=== PATIENT | male | born 1985 | race Caucasian/White ===

== ENCOUNTER 2021-08-11 16:32 | Emergency (ER) | payer OTHER, MEDICAID, SELFPAY ==
[2021-08-11 16:48] VITALS: BP 103/59; PULSE 69; RESP 18; TEMP 36.6; O2SAT 97; BMI 20.3
[2021-08-11 17:13] LABS: COVID19 -Nasal RAPID Negative (Negative)
--- NOTE | 2021-08-11 18:54 | ED_ITS ---
HPI - Recheck/Abnormal Lab/Rx <RENAY Jordan - Last Filed: 08/11/21 19:00> General Chief Complaint: Recheck/Abnormal Lab/Rx Stated Complaint: Exposed To Covid, Fatigue and Muscle Aches Time Seen by Provider: 08/11/21 17:08 Source: patient Mode of arrival: Ambulatory Limitations: no limitations History of Present Illness HPI narrative: 36-year-old male presents the ED for possible exposure to COVID and requesting COVID test. Patient reports that he was golfing a week ago with somebody who tested positive on Saturday. He denies any cough, shortness of breath, chest pain, loss of sense of smell or taste, fever, nausea or vomiting. 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 He does not wish to be vaccinated for COVID today. Related Data Allergies Allergy/AdvReac Type Severity Reaction Status Date / Time No Known Drug Allergies Allergy Verified 08/11/21 16:47 Review of Systems <RENAY Jordan - Last Filed: 08/11/21 19:00> Review of Systems Narrative: General: denies fever, chills Head/Neck: denies headache, neck pain Eyes: denies visual changes, eye pain Cardio: denies chest pain, palpitations Respiratory: denies shortness of breath, cough GI: denies abdominal pain, nausea, vomiting, or diarrhea : denies dysuria, hematuria MSK: denies joint pain, muscle weakness Skin: denies rash, itching Neuro: denies numbness, tingling Patient History <RENAY Jordan - Last Filed: 08/11/21 19:00> Social History Smoking Status: Current every day smoker Smoking Status: Current every day smoker Substance Use Type: marijuana Exam <RENAY Jordan - Last Filed: 08/11/21 19:00> Narrative Exam Narrative: Independently reviewed vitals signs and nursing notes. General: Awake, alert, nontoxic, no cardiorespiratory distress Head/Neck: Atraumatic, neck full range of motion Eyes: EOMI, conjunctiva normal Nose: nares patent, no rhinorrhea Mouth/Throat: moist mucus membranes, posterior pharynx normal, no oral lesions Cardio: Regular rate and rhythm, no peripheral edema Respiratory: respirations unlabored without wheezing, stridor, or rales. No retractions. GI: Abdomen soft, nontender MSK: Moves all extremities, neurovascularly intact Skin: Normal capillary refill, no rash Neuro: Normal speech and cognition, normal gait Initial Vital Signs Initial Vital Signs: Vital Signs Temperature 97.9 F 08/11/21 16:48 Pulse Rate 69 08/11/21 16:48 Respiratory Rate 18 08/11/21 16:48 Blood Pressure 103/59 L 08/11/21 16:48 Pulse Oximetry 97 08/11/21 16:48 <Anant Boswell DO - Last Filed: 08/12/21 08:02> Initial Vital Signs Initial Vital Signs: Vital Signs Temperature 97.9 F 08/11/21 16:48 Pulse Rate 69 08/11/21 16:48 Respiratory Rate 18 08/11/21 16:48 Blood Pressure 103/59 L 08/11/21 16:48 Pulse Oximetry 97 08/11/21 16:48 Course <RENAY Jordan - Last Filed: 08/11/21 19:00> Orders Ordered: ED Orders 08/11/21 16:51 COVID19 -Nasal swab/Pre-Proc Stat Vital Signs Vital signs: Vital Signs - 8 hr 08/11/21 16:48 Temperature 97.9 F Pulse Rate 69 Respiratory Rate 18 Blood Pressure 103/59 L Pulse Oximetry 97 <DO Carlitos Cornell Last Filed: 08/12/21 08:02> Orders Ordered: ED Orders 08/11/21 16:51 COVID19 -Nasal swab/Pre-Proc Stat Vital Signs Vital signs: Vital Signs - 8 hr 08/11/21 16:48 Temperature 97.9 F Pulse Rate 69 Respiratory Rate 18 Blood Pressure 103/59 L Pulse Oximetry 97 MDM - Recheck/Abnormal Lab/Rx <RENAY Jordan - Last Filed: 08/11/21 19:00> Lab Data Labs: Lab Results 08/11/21 Range/Units 16:51 SARS-CoV-2 (PCR) Negative (Negative) MDM Narrative Medical decision making narrative: 36-year-old male presents to the ED with concern for COVID exposure requesting COVID test. His COVID test was negative today. Patient understands to monitor for signs and symptoms of COVID, and quarantine as necessary, and was educated on vaccination. He declined wanting a [employer] vaccine today but appreciated the offer. He understands to return to the emergency department for any new or worsening symptoms. Patient is appropriate and amenable to discharge home. Vital signs are stable on repeat examination is unremarkable. Patient has been informed of results. Patient has been given strict return to ER precautions for any new or worsening symptoms. Patient understands to follow up closely with outpatient providers as instructed. Patient understands plan and agrees to discharge home. All questions and concerns answered at this time. <Anant Boswell DO - Last Filed: 08/12/21 08:02> Lab Data Labs: Lab Results 08/11/21 Range/Units 16:51 SARS-CoV-2 (PCR) Negative (Negative) Discharge Plan Departure Patient Disposition: Home Clinical Impression: Encounter for screening for COVID-19 Instructions: About the COVID-19 Vaccine Activity Restrictions/Additional Instructions: Congratulations, your COVID test today was negative. Please return for any new or worsening symptoms including fever, cough, shortness of breath, difficulty breathing, chest pain, nausea or vomiting, or any other concerning symptoms. *What to do: *Please continue to take your regular medications as directed. [ ] New medication prescriptions sent to your pharmacy: [ ] [ ] New medication written as a paper prescription [x ] No new medications given *Please follow up with your primary care provider in 2-3 days, call for an appointment. Let them know you were seen in the Emergency Department and that we ask that you be seen in follow up. We will electronically transmit a record of today's note if your PCP is in our system *If you do not have a primary care provider please contact the [facility] Resource line at [phone]. They will ask some questions about your medical history and help get you set up with a doctor in the community. *Return to Emergency Department if you should have any new, worsening or concerning symptoms, such as [fever greater than 101F, chills, worsening pain, persistent vomiting or other bothersome symptoms] <Anant Boswell DO - Last Filed: 08/12/21 08:02> [facility] Attestation: Dr Boswell Co-Sign Statement: I was available for consultation during this patient's emergency department visit. This chart is signed by myself for administrative purposes only. I did not have direct contact with this patient during this visit. They were seen independently by the APC.
== END 2021-08-11 18:01 | disposition home or self-care (01) ==
PROVIDERS: Emergency Medicine; Emergency Provider Nurse Practitioner Critical Care Medicine
DX: R53.83 Other fatigue (principal)
CPT/HCPCS: 87635; 99281; 99282; C9803

== ENCOUNTER 2023-03-11 11:47 | Emergency (ER) | payer OTHER, MEDICAID, SELFPAY ==
[2023-03-11 11:55] VITALS: BP 121/57; PULSE 54; RESP 17; TEMP 37; O2SAT 100; BMI 19.0
[2023-03-11] MEDS: FLUORESCEIN 1 MG STRIP EYE-RIGHT (12:14)
[2023-03-11] MEDS: PROPARACAINE 0.5% OPHTH SOL 1 DROPS EYE-RIGHT (12:14)
[2023-03-11] MEDS: TET,DIPH,PERTUSS(ACELL),VAC/PF 0.5 ML SYRINGE IM (12:27)
--- NOTE | 2023-03-11 12:30 | ED_ITS ---
HPI - Eye Problem <Stewart Kirkland PA-C - Last Filed: 03/11/23 12:37> General Chief complaint: Eye Problems Stated complaint: Cat scratch Left eye Time Seen by Provider: 03/11/23 11:51 Source: patient Mode of arrival: Ambulatory History of Present Illness HPI Narrative: 37-year-old male with no reported past medical history presents to the ED with right eyelid redness and swelling for 2 days. Patient states that he was scratched by his cat on his right eyelid and left forehead, following which he is had swelling of the right eyelid, redness, pain. Patient denies any changes in vision. Patient denies any pain with extraocular movements. Patient denies fevers, chills, nausea, vomiting. Last tetanus unknown. Related Data Previous Rx's Medication Instructions Recorded cefdinir 300 mg capsule 300 mg PO BID 7 days #14 caps 03/11/23 sulfamethoxazole 800 1 tab PO BID 7 days #14 tabs 03/11/23 mg-trimethoprim 160 mg tablet (Bactrim DS) Allergies Allergy/AdvReac Type Severity Reaction Status Date / Time No Known Drug Allergies Allergy Verified 08/11/21 16:47 Review of Systems <Stewart Kirkland PA-C - Last Filed: 03/11/23 12:37> Review of Systems ROS Unobtainable: All systems reviewed & are unremarkable except as noted in HPI and below Constitutional Constitutional: Denies chills, Denies fatigue, Denies fever(s), Denies frequent falls, Denies lethargy and Denies weakness Eyes Eyes: Denies change in vision, Denies eye discharge, Denies irritation and Denies loss of vision Comments: Right eyelid red and swollen and painful. ENT Ears, Nose, Mouth, and Throat: Denies change in voice, Denies dizziness, Denies neck pain, Denies sore throat and Denies throat swelling Cardiovascular Cardiovascular: Denies chest pain, Denies irregular heart rhythm, Denies lightheadedness, Denies palpitations, Denies dyspnea, Denies dyspnea on exertion and Denies orthopnea Respiratory Respiratory: Denies cough, Denies dyspnea, Denies dyspnea on exertion and Denies wheezing Gastrointestinal Gastrointestinal: Denies abdominal pain, Denies change in bowel habits, Denies diarrhea, Denies nausea and Denies vomiting Genitourinary Genitourinary: Denies hematuria, Denies flank pain, Denies urinary incontinence and Denies urinary urgency Musculoskeletal Musculoskeletal: Denies back pain, Denies muscle weakness, Denies neck pain, Denies numbness and Denies tingling Integumentary/Breasts Skin/Breast: Denies pruritus, Denies erythema, Denies rash and Denies wounds Comments: Left forehead scratch is red and swollen Neurologic Neurologic: Denies behavioral changes, Denies confusion, Denies dizziness, Denies frequent falls, Denies loss of vision, Denies numbness, Denies tingling and Denies weakness Psychiatric Psychiatric: Denies anxiety, Denies behavioral changes, Denies confusion, Denies depression, Denies homicidal ideation and Denies suicidal ideation Endocrine Endocrine: Denies fatigue, Denies flushing and Denies palpitations Hematologic/Lymphatic Hematologic/Lymphatic: Denies easy bruising Allergic/Immunologic Allergic/Immunologic: Denies urticaria, Denies throat swelling and Denies wheezing Patient History <Stewart Kirkland PA-C - Last Filed: 03/11/23 12:37> Social History Smoking Status: Current every day smoker Smoking Status: Current every day smoker Substance Use Type: marijuana Exam <Stewart Kirkland PA-C - Last Filed: 03/11/23 12:37> Narrative Exam Narrative: Const General:?cooperative, healthy appearing and comfortable [facility] Head:?normal to inspection Ears:?hearing grossly normal bilaterally Nose:?external nose normal Face and sinus:?normal facial exam and sinuses nontender Mouth:?oral mucosae normal Throat:?posterior oropharynx normal Eyes General:? Right upper eyelid appears erythematous, swollen, painful to touch. There is no pain with extraocular movements. No corneal injection or watering eyes. No corneal abrasions or ulcers visualized on fluorescein exam. Visual acuity is intact. Left upper forehead has a scratch that also appears somewhat erythematous and swollen. No discharge noted. Neck Neck:?normal visual inspection and no lymphadenopathy noted Resp Effort & Inspection:?normal respiratory effort Auscultation:?clear to auscultation bilaterally Cardio Rate:?regular rate Rhythm:?regular rhythm Neuro General:?patient alert, patient awake and patient oriented x3 Initial Vital Signs Initial Vital Signs: Vital Signs Temperature 98.6 F 03/11/23 11:55 Pulse Rate 54 L 03/11/23 11:55 Respiratory Rate 17 03/11/23 11:55 Blood Pressure 121/57 L 03/11/23 11:55 Pulse Oximetry 100 03/11/23 11:55 Oxygen Delivery Method Room Air 03/11/23 11:55 <Girish Mosquera DO - Last Filed: 03/11/23 16:49> Initial Vital Signs Initial Vital Signs: Vital Signs Temperature 98.6 F 03/11/23 11:55 Pulse Rate 54 L 03/11/23 11:55 Respiratory Rate 17 03/11/23 11:55 Blood Pressure 121/57 L 03/11/23 11:55 Pulse Oximetry 100 03/11/23 11:55 Oxygen Delivery Method Room Air 03/11/23 11:55 Course <Stewart Kirkland PA-C - Last Filed: 03/11/23 12:37> Orders Ordered: Discontinued Medications Diphtheria/Tetanus/Acell Pertussis (Diph,Pertuss(Acell),Tet Vac/Pf 0.5 Ml Syringe) 0.5 ml IM .ONCE ONE Stop: 03/11/23 12:11 Last Admin: 03/11/23 12:15 Dose: Not Given Documented By: GAVINO Diphtheria/Tetanus/Acell Pertussis (Tet,Diph,Pertuss(Acell),Vac/Pf 0.5 Ml Syringe) 0.5 ml IM .ONCE ONE Stop: 03/11/23 12:16 Last Admin: 03/11/23 12:27 Dose: 0.5 ml Documented By: RB Fluorescein Sodium (Fluorescein 1 Mg Strip) 1 mg EYE-RIGHT NOW ONE Stop: 03/11/23 12:12 Last Admin: 03/11/23 12:14 Dose: 1 mg Documented By: GAVINO Proparacaine HCl (Proparacaine 0.5% Ophth [place]) 1 drops EYE-RIGHT PRN PRN PRN Reason: Pain, Moderate (4-6) Last Admin: 03/11/23 12:14 Dose: 1 drops Documented By: GAVINO Vital Signs Vital signs: Vital Signs - 8 hr 03/11/23 11:55 Temperature 98.6 F Pulse Rate 54 L Respiratory Rate 17 Blood Pressure 121/57 L Pulse Oximetry 100 Oxygen Delivery Method Room Air <Girish Mosquera DO - Last Filed: 03/11/23 16:49> Orders Ordered: Discontinued Medications Diphtheria/Tetanus/Acell Pertussis (Diph,Pertuss(Acell),Tet Vac/Pf 0.5 Ml Syringe) 0.5 ml IM .ONCE ONE Stop: 03/11/23 12:11 Last Admin: 03/11/23 12:15 Dose: Not Given Documented By: GAVINO Diphtheria/Tetanus/Acell Pertussis (Tet,Diph,Pertuss(Acell),Vac/Pf 0.5 Ml Syringe) 0.5 ml IM .ONCE ONE Stop: 03/11/23 12:16 Last Admin: 03/11/23 12:27 Dose: 0.5 ml Documented By: GIBRAN Fluorescein Sodium (Fluorescein 1 Mg Strip) 1 mg EYE-RIGHT NOW ONE Stop: 03/11/23 12:12 Last Admin: 03/11/23 12:14 Dose: 1 mg Documented By: GAVINO Proparacaine HCl (Proparacaine 0.5% Ophth [place]) 1 drops EYE-RIGHT PRN PRN PRN Reason: Pain, Moderate (4-6) Last Admin: 03/11/23 12:14 Dose: 1 drops Documented By: GAVINO Vital Signs Vital signs: Vital Signs - 8 hr 03/11/23 11:55 Temperature 98.6 F Pulse Rate 54 L Respiratory Rate 17 Blood Pressure 121/57 L Pulse Oximetry 100 Oxygen Delivery Method Room Air MDM - Eye Problem <Stewart Kirkland PA-C - Last Filed: 03/11/23 12:37> MDM Narrative Medical decision making narrative: 37-year-old male with no reported past medical history presents to the ED with right eyelid redness and swelling for 2 days. Concern for corneal abrasion versus periorbital cellulitis versus other. Physical exam is reassuring, fluorescein exam negative for corneal abrasions. Visual acuity is intact. Patient's symptoms likely due to periorbital cellulitis. Prescribed antibiotics. Recommend follow-up with ophthalmology. ED return precautions were discussed with patient. Patient verbalized understanding. Discharge Plan Departure Patient Disposition: Home Clinical Impression: Periorbital cellulitis Instructions: DI for Cellulitis -- Adult Activity Restrictions/Additional Instructions: You were evaluated in the ED for a CAT scratch on your eye and forehead. It appears that the scratch on the eyelid and forehead are infected, for which you are being prescribed 2 antibiotics. Please complete the antibiotics as prescribed. Your vision is intact and there appeared to be no scratches inside the eye. Please follow-up with an promos executive producer as soon as possible. Return to the ED if you have worsening symptoms or your vision changes. Prescriptions: New sulfamethoxazole-trimethoprim [Bactrim DS] 800-160 mg tablet 1 tab PO BID 7 Days Qty: 14 0RF cefdinir 300 mg capsule 300 mg PO BID 7 Days Qty: 14 0RF Referrals: Miscellaneous,Doctor, MD [Primary Care Provider] - Stand Alone Forms: Patient Portal/API <Girish Mosquera DO - Last Filed: 03/11/23 16:49> Cosign ED Attending Cosignature Attestation: I was immediately available in the department for consultation. This documentation has been reviewed and I agree with assessment and plan. Supervised by Girish Mosquera DO
== END 2023-03-11 12:34 | disposition home or self-care (01) ==
PROVIDERS: Emergency Provider Student in an Organized Health Care Education/Training Program
DX: L03.213 Periorbital cellulitis (principal); W55.03XA Scratched by cat, initial encounter; Z23 Encounter for immunization
CPT/HCPCS: 90471; 99283; 90715